=== PATIENT | female | born 1990 | race African-American/Black ===

== ENCOUNTER 2020-02-01 19:38 | Emergency (ER) | payer SELFPAY ==
[~2020-02-01] VITALS: Ht 160 cm; Wt 72.3 kg
[2020-02-01 19:56] VITALS: Ht 160 cm; Wt 72.3 kg
[2020-02-01] MEDS ORDERED: AMOXICILLIN500 M1 PO (19:57)
[2020-02-01] MEDS ORDERED: MUPIROCIN22 GM TOPICAL (20:42)
[2020-02-01 20:50] VITALS: BP 126/63
== END 2020-02-01 20:50 | disposition home or self-care (01) ==
LOC: D.ER 19:38
DX: L73.1 Pseudofolliculitis barbae (principal); L02.416 Cutaneous abscess of left lower limb